=== PATIENT | female | born 1970 | race Caucasian/White ===

== ENCOUNTER 2020-01-12 05:18 | Emergency (ER) | payer OTHER ==
[~2020-01-12] VITALS: Ht 160 cm; Wt 60.0 kg
--- NOTE | 2020-01-12 05:38 | PHYS DOC ---
General Adult EDM: Chief Complaint: BLOOD SUGAR PROBLEM HPI: HPI: ".. My sugar was too high at home. .. It was over 200.. I am usually low..." Patient is a 49 year old FEMALE who presents with above hx and complaints of body glucose level. Patient has had a history of elevated blood sugar during her . Patient is not on any diabetic meds. Patient denies any noncompliance with diet. Patient denies any current pain or distress. Patient has had history of recurrent ear infections but denies any current infections. Patient became anxious when her she checked her blood sugar tonight and it was elevated. Patient does not know of her glucose monitor is accurate it has never been compared to doctor's office Accu-Cheks. No history of specific ill contacts. No history of travel outside [facility]. Review of Systems: Review of Systems: Constitutional: Denies fever or chills Eyes: Denies change in visual acuity HENT: Denies nasal congestion or sore throat Respiratory: Denies cough or shortness of breath Cardiovascular: Denies chest pain or edema GI: Denies abdominal pain, nausea, vomiting, bloody stools or diarrhea : Denies dysuria Musculoskeletal: Denies back pain or joint pain Integument: Denies rash Neurologic: Denies headache, focal weakness or sensory changes Endocrine: Denies polyuria or polydipsia Complaints of elevated glucose level at home. Lymphatic: Denies swollen glands Psychiatric: Denies depression or anxiety Heart Score: Risk Factors: Risk Factors: DM, Current or recent (<one month) smoker, HTN, HLP, family history of CAD, obesity. Risk Scores: Score 0 - 3: 2.5% MACE over next 6 weeks - Discharge Home Score 4 - 6: 20.3% MACE over next 6 weeks - Admit for Clinical Observation Score 7 - 10: 72.7% MACE over next 6 weeks - Early Invasive Strategies Family History: Family History: Diabetes, hypertension Current Medications: Current Meds: See nursing for home meds Allergies: Allergies: No known drug allergies Physical Exam: PE: Constitutional: , no acute distress, non-toxic appearance. [] HENT: Normocephalic, atraumatic, bilateral external ears normal, oropharynx moist, no oral exudates, nose normal. [] Eyes: PERRLA, EOMI, conjunctiva normal, no discharge. [] Neck: Normal range of motion, no tenderness, supple, no stridor. [] Cardiovascular:Heart rate regular rhythm, no murmur [] Lungs & Thorax: Bilateral breath sounds clear to auscultation [] Abdomen: Bowel sounds normal, soft, no tenderness, no masses, no pulsatile masses. Obese. Skin: Warm, dry, no erythema, no rash. [] Back: No tenderness, no CVA tenderness. [] Extremities: No tenderness, no cyanosis, no clubbing, ROM intact, no edema. [] Neurologic: Alert and oriented X 3, normal motor function, normal sensory function, no focal deficits noted. [] Psychologic: Affect anxious, judgement normal, mood normal. [] Current Patient Data: Labs: Laboratory Tests Test 01/12/20 05:32 Glucose (Fingerstick) 132 mg/dL (70-99) H EKG: EKG: [] Radiology/Procedures: Radiology/Procedures: [] Course & Med Decision Making: Course & Med Decision Making Pertinent Labs and Imaging studies reviewed. (See chart for details) Check sugars three times a day at home. Patient to record sugar levels. And s how this to her doctor. Patient do blood pressure checks 3 times a day. Keep a record to show to her primary care. Patient return if any concerns. Impression: 1. Hx.of elevated Glucose at Home 215, Glucose in ED= 132 2. Elevated blood pressure-on ED visit ( Hypertension- do follow up confirmation with comparison of blood pressure cuff to blood pressure readings in doctor's office) [] Dragon Disclaimer: Dragon Disclaimer: This electronic medical record was generated, in whole or in part, using a voice recognition dictation system. Departure Departure: Disposition: HOME/RESIDENCE PRIOR TO ADM Condition: STABLE Referrals: BOB ZHOU (PCP) Ida Disclaimer This chart was dictated in whole or in part using Voice Recognition software in a busy, high-work load, and often noisy Emergency Department environment. It may contain unintended and wholly unrecognized errors or omissions. Dragon Disclaimer This chart was dictated in whole or in part using Voice Recognition software in a busy, high-work load, and often noisy Emergency Department environment. It may contain unintended and wholly unrecognized errors or omissions. JOSE LUIS HULL MD January 12, 2020 05:38
[2020-01-12 06:00] VITALS: BP 171/103
== END 2020-01-12 06:10 | disposition home or self-care (01) ==
LOC: ER 05:18
DX: I10 Essential (primary) hypertension (principal); R73.9 Hyperglycemia, unspecified
CPT/HCPCS: 82947; 99283

== ENCOUNTER 2020-12-29 18:10 | Emergency (ER) | payer SELFPAY ==
[~2020-12-29] VITALS: Ht 160 cm; Wt 124.4 kg
--- NOTE | 2020-12-29 18:40 | PHYS DOC ---
Past History Past Medical History: Other Additional Past Medical Histor: hyperglycemia, staff infections(ear),hemorroids Past Surgical History: Cholecystectomy, Tubal ligation Alcohol Use: None Adult General Chief Complaint Chief Complaint: FACE PROBLEM HPI HPI Patient is a 50-year-old female who presents to the emergency department with a chief complaint of concern for right-sided ear infection. States she has had multiple ear infections her whole life and feels like she has some pressure in that ear. Denies any recent travel, traumas, fevers, illness, headache, vision problems, eye pain, pain or trouble swallowing, numbness/weakness/tingling, chest pain, shortness of breath, abdominal pain, nausea, vomiting. Does state that she has some intermittent, nasal congestion but does not have any right now, states he is otherwise eating and drinking normally for her. Denies any alcohol or drug use. Review of Systems Review of Systems Review of systems otherwise unremarkable except noted in HPI Allergies Allergies Allergies Coded Allergies Type Severity Reaction Last Updated Verified No Known Drug Allergies 01/12/20 No Physical Exam Physical Exam Constitutional: Well developed, well nourished, no acute distress, non-toxic appearance. [] HENT: Normocephalic, atraumatic, bilateral external ears normal, left ear/tympanic membrane and ear normal, right tympanic membrane with some scarring but no obvious perforation, erythema or infection but does have what appears to be significant cerumen debris but no impaction. Canal oropharynx moist, no or al exudates but does appear to have some drainage/postnasal drip, nose normal. [] Eyes: conjunctiva normal, no discharge. [] Neck: Normal range of motion, no tenderness, no lymphadenopathy Cardiovascular:Heart rate regular rhythm, no murmur [] Lungs & Thorax: No respiratory distress Neurologic: Alert and oriented X 3, normal motor function, no focal deficits noted. [] Psychologic: Affect normal, judgement normal, mood normal. [] EKG EKG [] Radiology/Procedures Radiology/Procedures [] Heart Score C/O Chest Pain: No Risk Factors: Risk Factors: DM, Current or recent (<one month) smoker, HTN, HLP, family history of CAD, obesity. Risk Scores: Risk Factors: DM, Current or recent (<one month) smoker, HTN, HLP, family history of CAD, obesity. Course & Med Decision Making Course & Med Decision Making Patient is a 50-year-old female who presents with concern for right-sided ear infection Vital signs notable for hypertension. Physical exam noted above. Patient with some wax in the right ear but does not appear to be impacted and does not appear to have otitis medias/externa or perforated eardrum. Discussed all findings with patient and recommended [id number] eardrops for wax removal and to never stick anything in her ear as this could actually compacted wax and/or damage her eardrum. Advised to call her primary care physician first thing in the morning to update her on ED visit, and and keep her upcoming primary care appointment in 3 days. Gave return precautions to the ED. Patient grateful, verbalized understanding and agreed with plan of discharge. Dragon Disclaimer Ida Disclaimer This electronic medical record was generated, in whole or in part, using a voice recognition dictation system. Departure Departure: Impression: Primary Impression: Cerumen debris on tympanic membrane of right ear Disposition: HOME / SELF CARE / HOMELESS Condition: GOOD Referrals: BOB ZHOU (PCP) Patient Instructions: Cerumen Plug Additional Instructions: Please read all the attached information very carefully on your diagnosis and tips for treatment. Please do not stick anything in your ear such as Q-tips as discussed as this could cause impaction and/or damage. You can use your eardrops for wax removal as discussed as your tympanic membrane does not appear to have any perforations in it. As discussed please do not use Flonase every day and all the time as this could cause damage to your membrane in your nose and cause dryness and bleeding. Please continue use all your other medications as prescribed. Please keep your upcoming primary care physician appointment in 3 days and discuss your recent ED visit. Please come back to the ED with new or concerning symptoms as discussed. MEHDI MOORE MD December 29, 2020 18:40
[2020-12-29 18:52] VITALS: BP 180/115
== END 2020-12-29 18:52 | disposition home or self-care (01) ==
LOC: ER 18:10
DX: H61.21 Impacted cerumen, right ear (principal); Z90.49 Acquired absence of other specified parts of digestive tract; Z98.51 Tubal ligation status
CPT/HCPCS: 99282-25